=== PATIENT | female | born 1960 | race Caucasian/White ===

== ENCOUNTER 2016-03-06 22:47 | Emergency (ER) | payer OTHER ==
[2016-03-06 23:03] VITALS: RESP 16
--- NOTE | 2016-03-06 23:45 | EDPHY ---
H & P Stated Complaint: kicked by horse Source: Patient - Personal History LMP (Females 10-55): Hysterectomy Current Tetanus/Diphtheria Vaccine: Unsure Current Tetanus Diphtheria and Acellular Pertussis (TDAP): Unsure - Medical/Surgical History Hx Asthma: No Hx Chronic Respiratory Disease: No Hx Diabetes: No Hx Cardiac Disease: No Hx Renal Disease: No Hx Cirrhosis: No Hx Alcoholism: No Hx HIV/AIDS: No Hx Splenectomy or Spleen Trauma: No Other PMH: hysterectomy, bladder sling, - Social History Smoking Status: Never smoked HPI/ROS: HPI CHIEF COMPLAINT: Kicked in face by a horse HISTORY OF PRESENT ILLNESS: this patient is a 55-year-old female, denies any significant medical history or significant surgical history she presents emergency room after which he thinks was kicked in the face by a horse. She is having trouble remembering the events. According to her she came in from the barn after putting the horses away was perseverating stating that she was kicked in the face by a horse. Unclear if she hit her head or fell down. She does not have a headache. They came to the emergency room this evening because of facial swelling facial pain and intraoral lip laceration of her upper lip. And problems remembering the events. She denies neck pain, chest pain, headache. patient tells me tetanus shot is not up-to-date. Past Medical History: No significant medical history Past Surgical History: no significant surgical history Social History: denies use of drugs, alcohol, tobacco products Family History: noncontributory ROS REVIEW OF SYSTEMS: A comprehensive 10 point review of systems is otherwise negative aside from elements mentioned in the history of present illness. Exam Constitutional appears well, triage nursing summary reviewed, vital signs reviewed, awake/alert. Eyes normal conjunctivae and sclera, EOMI, PERRLA. HENT head/neck: normocephalic atraumatic, face: swelling to the upper lip, intraoral lip laceration midline no vermilion border involvement, 3 cm vertical incision does not appear through and through. , midface stable, normal dentition normal bite, no malocclusion, no signs of midface instability moist mucus membranes, no epistaxis, neck supple/ no meningismus, no raccoon eyes. Respiratory clear to auscultation bilaterally, normal breath sounds, no respiratory distress, no wheezing. Cardiovascular rate normal, regular rhythm, no murmur, no edema, distal pulses normal. Gastrointestinal soft, non-tender, no rebound, no guarding, normal bowel sounds, no distension, no pulsatile mass. Genitourinary no CVA tenderness. Musculoskeletal no midline vertebral tenderness, full range of motion, no calf swelling, no tenderness of extremities, no meningismus, good pulses, neurovascularly intact. Skin pink, warm, & dry, no rash, skin atraumatic. Neurologic awake, alert and oriented x 3, AAOx3, moves all 4 extremities equally, motor intact, sensory intact, CN II-XII intact, normal cerebellar, normal vision, normal speech. Psychiatric normal mood/affect. Heme/Lymph/Immune no lymphadenopathy. Differential Diagnosis: includes but is not limited to in a particular order, concussion, intracranial bleed, closed head injury, skull fracture, facial fracture, dental fracture, lip laceration, need for tetanus Medical Decision Making: This patient had a CT scan of the head to rule out significant intracranial trauma, patient had a CT scan maxillofacial to rule out significant facial trauma. Her intraoral lip laceration will need to be repaired. Tetanus will need to be updated. Re-evaluation: CT scan of the Head without IV contrast for trauma. The results of the study are negative for acute traumatic injury The study was read by Dr. Rosas. I viewed the images myself on the PACS system. CT scan of the maxillofacial without contrast for trauma. The results of the study are negative for acute traumatic injury soft tissue swelling noted over the right maxilla The study was read by Dr. Rosas I viewed the images myself on the PACS system. Please see separate laceration no by King DAWKINS (Joaquin Baker) Constitutional: Initial Vital Signs Temperature (C) 36.8 C 03/06/16 22:59 Heart Rate 72 03/06/16 22:59 Respiratory Rate 16 03/06/16 22:59 Blood Pressure 141/94 H 03/06/16 22:59 O2 Sat (%) 98 03/06/16 22:59 O2 Delivery Mode Room Air Allergies/Adverse Reactions: bacitracin [From Neosporin ([id number])] Allergy (Verified 03/06/16 22:57) bacitracin zinc [From Neosporin ([id number])] Allergy (Verified 03/06/16 22: 57) neomycin sulfate [From Neosporin ([id number]-wdy-vgemo)] Allergy (Verified 03/06/16 22: 57) polymyxin B [From Neosporin ([id number])] Allergy (Verified 03/06/16 22:57) Tetracyclines Allergy (Verified 03/06/16 22:57) Home Medications: Medication Instructions Recorded Celebrex 03/06/16 Turmeric 03/06/16 Ibuprofen [Motrin (*)] 800 mg PO Q6-8PRN #7 tab 03/07/16 Medical Decision Making Procedures: Procedure: Laceration repair. I was requested by Dr. Baker to perform wound closure I explained the indications, risks and benefits for both laceration repair and anesthetic administration. Verbal consent was obtained from the patient . The laceration on the buccal mucosa of the upper lip was anesthetized using 0.5% bupivicaine with epinephrine . After anesthetic administered the patient was observed for a period of time and had no apparent adverse effects. The wound was cleaned, prepped, draped in normal sterile fashion and explored to its base. No foreign body seen, no foreign bodies palpated. The wound was repaired with in multiple layers, middle layer and buccal mucosa closed with a total of 6 simple interrupted 5 0 gut sutures. Laceration is not through and through. There is an abrasion on the skin however not a puncture wound.. The wound repair was complex. The procedure was performed by myself. Patient has been informed that scarring will occur, although efforts have been made to minimize this. (Charity Malik) - Data Points Medications Given: Discontinued Medications Diphtheria/Tetanus/Acell Pertussis (Boostrix) 0.5 ml IM .ONCE ONE Stop: 03/07/16 00:16 Last Admin: 03/07/16 00:20 Dose: 0.5 ml Departure - Departure Disposition: Home, Routine, Self-Care Clinical Impression: Concussion Qualifiers: Encounter type: initial encounter Loss of consciousness presence/duration: with LOC of 30 min or less Qualifier Code: (S06.0X1A) Concussion with loss of consciousness of 30 minutes or less, initial encounter Head injury Qualifiers: Encounter type: initial encounter Qualifier Code: (S09.90XA) Unspecified injury of head, initial encounter Condition: Good Instructions: Concussion (ED), Head Injury (ED), Laceration (ED) Additional Instructions: 1. stay well-hydrated 2. return emergency room if he develops any worsening symptoms questions or concerns includes worsening headache, vomiting. 3. Please follow up with your primary care doctor about your concussion. Referrals: NONE *PRIMARY CARE P,. [Primary Care Provider] - As per Instructions Elsy Quiñones MD [Medical Doctor] - As per Instructions Prescriptions: Ibuprofen [Motrin (*)] 800 mg PO Q6-8PRN #7 tab
[2016-03-07] MEDS ORDERED: TDAP ADULT 0.5 ML INJ (BOOSTRIX) IM ONE (00:15)
[2016-03-07 04:05] VITALS: BP 151/89; PULSE 78; TEMP 98.1; O2SAT 97
--- NOTE | 2016-03-07 06:36 | CT ---
CT Head Without Contrast History: Kicked in head by horse with loss of consciousness and no memory of event. Technique: Noncontrast images through the head. Soft tissue and bone window evaluation is performed. Dose reduction techniques were utilized. Findings: There is no evidence for hemorrhage, mass lesion, acute infarction, intracranial edema, hydrocephalus or abnormal intracranial calcification. No subarachnoid blood is identified. There is no midline shift. The ambient cistern is patent. Bone window evaluation reveals normally aerated paranasal and mastoid sinuses. There is no evidence of pneumocephalus. Impression: Head CT within normal limits. Results called to Dr. Baker at 12:49 a.m. Final results are concordant with the initial interpretation. General information for patients regarding this examination can be found at [email or web address]. If you have questions or comments about this report, please contact me at [phone] (hospital) or [phone] (cell). POS99 MTDD
--- NOTE | 2016-03-07 06:39 | CT ---
CT of the Facial Bones Indication: Kicked in head by horse with loss of consciousness and no memory of event. Technique: 0.625 mm thick collimated slices were obtained through the face from just below the mandible to above the frontal sinuses. The data was reconstructed in the sagittal and coronal planes. Dose reduction techniques were utilized. Findings: No facial bone fracture is identified. There are two punctate radiopaque densities in the skin above the bridge of the nose. There is left lower premaxillary focal soft tissue swelling. No anterior maxillary fracture is identified. The paranasal sinuses are normally aerated. There is a small right maxillary sinus retention cyst. The maxillae, zygomatic arches, orbits, and frontal bone are intact. The nasal bones are intact. The orbital globes and intraorbital contents look normal. Impression: Soft tissue findings described above. Otherwise, negative. Results discussed with Dr. Baker at 12:48 a.m. Final results are concordant with the initial interpretation. General information for patients regarding this examination can be found at [email or web address]. If you have questions or comments about this report, please contact me at (hospital) or [phone] (cell). POS99 MTDD
== END 2016-03-07 02:09 | disposition home or self-care (01) ==
DX: S06.0X1A Concussion with loss of consciousness of 30 minutes or less, initial encounter (principal); S01.511A Laceration without foreign body of lip, initial encounter; Z23 Encounter for immunization; W55.12XA Struck by horse, initial encounter